=== PATIENT | female | born 1930 | race Caucasian/White ===

== ENCOUNTER 2016-12-26 15:52 | Inpatient (IN) ==
[2016-12-26] MEDS ORDERED: Ipratropium/Albuterol Neb 3 ML IH ONE (16:19)
--- NOTE | 2016-12-26 16:22 | Emergency Department Note ---
Disposition Clinical Impression: Community acquired pneumonia, Cardiac enzymes elevated Disposition: Admitted As Inpatient Condition: Good Referrals: Wellington George MD [Primary Care Provider] - Forms: ED Satisfaction Letter Time of Disposition: 18:17 SOB HPI - General Chief Complaint: ED Shortness of Breath/Dyspnea Stated Complaint: cough Time Seen by Provider: 12/26/16 16:11 Source: patient Mode of arrival: ambulatory Limitations: no limitations Nursing Notes Reviewed: Yes Vital Signs Reviewed: Yes - History of Present Illness 86-year-old comes in with cough congestion for the last several days. She denies fever states that the main complaint is cough. Does have some shortness of breath. Patient does have a [id number] history of smoking but stopped smoking 30 years ago. Pt Subjective Complaint: shortness of breath, cough Onset (ago): day(s) Severity: moderate Consistency/Duration: intermittent Improves with: nothing Worsens with: coughing Known history of: other (Denies but does have a 12-inub-mtda history remotely of smoking) Associated symptoms: Reports: cough. Denies: chest pain, fever Treatment prior to arrival: none Cough Description: Involuntary Cough Frequency: Intermittent - Related Data Home Medications Medication Instructions Recorded Confirmed Alprazolam 12/21/15 Aspirin 12/21/15 Celexa 12/21/15 12/21/15 Fish Oil 12/21/15 Losartan Potassium 12/21/15 Omeprazole 12/21/15 Pravastatin Sodium 12/21/15 B Complex 01/09/16 01/09/16 CeleXA 01/09/16 Vicks Dayquil Liquid 01/09/16 Vicks Nyquil Cough Liquid 01/09/16 01/09/16 Previous Rx's Medication Instructions Recorded hydrOXYzine pamoate [HydrOXYzine 25 mg PO TID PRN #30 capsule 12/21/15 Pamoate] methylPREDNISolone [Medrol] 4 mg PO TAPER #21 tablet 12/21/15 Ciprofloxacin HCl [Cipro] 500 mg PO BID #14 tablet 01/09/16 Phenazopyridine HCl [Pyridium] 200 mg PO TIDAC #6 tab 01/09/16 Mupirocin [Bactroban Oint] 1 appl TP BID #1 tube 04/17/16 Sulfamethoxazole/Trimeth DS 1 each PO BID #14 tablet 04/17/16 [Bactrim DS] Allergies Allergy/AdvReac Type Severity Reaction Status Date / Time No Known Allergies Allergy Verified 05/23/15 20:25 All systems ED: reviewed and negative except as stated. Constitutional: Denies: fever, chills, weakness, weight change Eyes: Denies: eye pain, eye discharge, vision change ENT ED: Denies: ear pain, throat pain, dental pain, hearing loss, epistaxis, congestion, dysphagia Cardiovascular: Denies: chest pain, palpitations, dyspnea on exertion, edema, syncope Respiratory: Reports: cough. Denies: dyspnea, wheezes, hemoptysis, stridor Gastrointestinal: Denies: abdominal pain, nausea, vomiting, diarrhea, constipation, hematemesis, melena, hematochezia Genitourinary: Denies: dysuria, frequency, hematuria, discharge Musculoskeletal: Denies: back pain, neck pain, arthralgia, myalgia Integumentary: Denies: rash, abrasion, lesions Neurological: Denies: headache, weakness, numbness, paresthesias, confusion, abnormal gait, vertigo Psychiatric: Denies: anxiety, depression, suicidal thoughts, homicidal thoughts , auditory hallucinations, visual hallucinations Endocrine: Denies: fatigue Hematological/Lymphatic: Denies: easy bleeding, easy bruising Allergic/Immunologic: Denies: facial swelling, urticaria Past Medical History - Past Medical History Medical history: Reports: CVA, hypertension, seizures, thyroid disease Surgical history: Reports: appendectomy, knee replacement, thyroidectomy Psychiatric history: Reports: no psych history MANAGER RESPIRATORY CARE history: Reports: no MANAGER RESPIRATORY CARE history - Social History Smoking Status: Former smoker Smokeless Tobacco Status: No Alcohol use: Reports: occasionally Drug use: Reports: none Physical Exam - General Limitations: no limitations General appearance: alert - Head Head exam: atraumatic, normocephalic, normal inspection - Eye Eye exam: Present: normal appearance, PERRL, EOMI - ENT ENT exam: normal exam, normal oropharynx, mucous membranes moist - Neck Neck exam: Present: normal inspection, full ROM, trachea midline - Chest Chest inspection: Present: normal inspection, symmetric chest wall rise - Respiratory Respiratory exam: Present: wheezes (Occasional), other (Diminished) - Cardiovascular Cardiovascular exam: Present: regular rate, normal rhythm, normal heart sounds - Abdominal Exam Abdominal exam: Present: soft, Non-Tender. Absent: tenderness, distention, guarding, rebound, rigidity - Extremities Exam Extremities exam: Present: normal inspection, full ROM. Absent: tenderness, pedal edema - Expanded Lower Extremity Exam Neurovascular/Tendon exam: Absent: motor deficit, sensory deficit, tendon deficit Gait: observed and normal - Back Exam Back exam: Present: normal inspection, full ROM. Absent: tenderness - Neurological Exam Neurological exam: Present: alert, oriented X3 - Psychiatric Psychiatric exam: Present: normal affect, normal mood - Skin Skin exam: Present: warm, dry, intact, normal color Course - Reevaluation(s) Reevaluation #1: 86-year-old who comes in with shortness of breath. Patient has a [id number] history of smoking but has not smoked for 30 years. Workup included chest x-ray shows multilobar pneumonia. Cardiac enzymes are slightly positive. She will be admitted for further evaluation and treatment. Time: 18:16 - Consultations Consultation #1: Discussed with Khushi Billings nurse practitioner, admit Time: 18:17 Vital Signs Temperature 98.3 F 12/26/16 15:53 Pulse Rate 96 12/26/16 15:53 Respiratory Rate 20 12/26/16 15:53 Blood Pressure 180/84 12/26/16 15:53 O2 Sat by Pulse Oximetry 92 12/26/16 15:53 Temperature 98.3 F 12/26/16 15:53 Pulse Rate 92 12/26/16 16:48 Respiratory Rate 16 12/26/16 16:48 Blood Pressure 108/78 12/26/16 16:48 O2 Sat by Pulse Oximetry 94 12/26/16 16:48 Oxygen Delivery Oxygen Delivery Room Air Shortness of Breath/Dyspnea - Lab Data Lab results reviewed: Yes I reviewed the patient's lab results. Result diagrams: 12/26/16 16:43 12/26/16 16:43 Lab Results 12/26/16 12/26/16 12/26/16 Range/Units 16:43 16:43 16:43 WBC 6.6 (4.3-11.1) K/mcL RBC 4.58 (3.82-4.97) M/mcL Hgb 13.6 (11.5-15.4) g/dL Hct 40.9 (35.3-44.9) % MCV 89.3 (83.0-100.0) fL MCH 29.7 (28.0-33.3) pg MCHC 33.3 (31.6-35.5) g/dL RDW 14.6 H (11.5-14.5) % Plt Count 174 (140-400) K/mcL MPV 10.2 (9.4-12.4) fL Immature Gran % 0.3 (0-4) % Seg Neutrophils % 70.2 % Lymphocytes % 13.7 % Monocytes % 14.7 % Eosinophils % 0.9 % Basophils % 0.2 % Neutrophils # 4.6 (1.6-8.9) K/mcL Lymphocytes # 0.9 (0.6-4.6) K/mcL Monocytes # 1.0 (0.0-1.3) K/mcL Eosinophils # 0.1 (0.0-0.6) K/mcL Basophils # 0.0 (0.0-0.2) K/mcL Sodium 139 (136-145) mEq/L Potassium 3.5 (3.5-4.5) mEq/L Chloride 102 (98-109) mEq/L Carbon Dioxide 26 (19-29) mEq/L BUN 16 (7-20) mg/dL Creatinine 0.85 (0.57-1.11) mg/dL Est GFR ( Amer) > 60 (> 60) Est GFR (Non-Af Amer) > 60 (> 60) BUN/Creatinine Ratio 19 (6-26) Glucose 99 (70-99) mg/dL Calculated Osmolality 289 (280-300) Lactic Acid 0.9 (0.5-2.2) mmol/L Calcium 8.9 (8.6-10.8) mg/dL Troponin I (0-0.03) ng/mL B-Natriuretic Peptide (0-100) pg/mL 12/26/16 12/26/16 Range/Units 16:43 16:43 WBC (4.3-11.1) K/mcL RBC (3.82-4.97) M/mcL Hgb (11.5-15.4) g/dL Hct (35.3-44.9) % MCV (83.0-100.0) fL MCH (28.0-33.3) pg MCHC (31.6-35.5) g/dL RDW (11.5-14.5) % Plt Count (140-400) K/mcL MPV (9.4-12.4) fL Immature Gran % (0-4) % Seg Neutrophils % % Lymphocytes % % Monocytes % % Eosinophils % % Basophils % % Neutrophils # (1.6-8.9) K/mcL Lymphocytes # (0.6-4.6) K/mcL Monocytes # (0.0-1.3) K/mcL Eosinophils # (0.0-0.6) K/mcL Basophils # (0.0-0.2) K/mcL Sodium (136-145) mEq/L Potassium (3.5-4.5) mEq/L Chloride (98-109) mEq/L Carbon Dioxide (19-29) mEq/L BUN (7-20) mg/dL Creatinine (0.57-1.11) mg/dL Est GFR ( Amer) (> 60) Est GFR (Non-Af Amer) (> 60) BUN/Creatinine Ratio (6-26) Glucose (70-99) mg/dL Calculated Osmolality (280-300) Lactic Acid (0.5-2.2) mmol/L Calcium (8.6-10.8) mg/dL Troponin I 0.04 H* (0-0.03) ng/mL B-Natriuretic Peptide 207 H (0-100) pg/mL - Radiology Data Radiology results reviewed: Yes I reviewed the patient's radiology results. Chest X-Ray 12/26/16 16:19 IMPRESSION: Suspected multilobar pneumonia on the left. Radiographic follow-up recommended to assure resolution. D/ / 12/26/2016 17:16:37 Eddie Suh MD / arvin Interpreting Provider: Eddie Suh MD
[2016-12-26 16:53] LABS: Basophils % 0.2 %; Eosinophils # 0.1 K/mcL (0.0-0.6); Eosinophils % 0.9 %; Hematocrit 40.9 % (35.3-44.9); Hemoglobin 13.6 g/dL (11.5-15.4); Immature Granulocytes % 0.3 % (0-4); Lymphocytes # 0.9 K/mcL (0.6-4.6); Lymphocytes % 13.7 %; Mean Corpuscular HGB Conc 33.3 g/dL (31.6-35.5); Mean Corpuscular Hemoglobin 29.7 pg (28.0-33.3); Mean Corpuscular Volume 89.3 fL (83.0-100.0); Mean Platelet Volume 10.2 fL (9.4-12.4); Monocytes % 14.7 %; Neutrophils # 4.6 K/mcL (1.6-8.9); Platelet Count 174 K/mcL (140-400); Red Blood Count 4.58 M/mcL (3.82-4.97); Red Cell Distribution Width 14.6 % (11.5-14.5); Segmented Neutrophils % 70.2 %
[2016-12-26 17:04] LABS: BUN/Creatinine Ratio 19 (6-26); Blood Urea Nitrogen 16 mg/dL (7-20); Calcium 8.9 mg/dL (8.6-10.8); Carbon Dioxide 26 mEq/L (19-29); Chloride 102 mEq/L (98-109); Glucose 99 mg/dL (70-99); Osmolality,Calculated 289 (280-300); Potassium 3.5 mEq/L (3.5-4.5); Sodium 139 mEq/L (136-145); eGFR For African Americans > 60 (> 60); eGFR For Non-African Americans > 60 (> 60)
[2016-12-26] MEDS ORDERED: Piperacillin/Tazobactam 3.375 GM in D5% in Water (Mini-Bag+) 100 ML IVPB ONE (17:46)
[2016-12-26] MEDS ORDERED: Aspirin 81 MG TAB.CHEW PO STA (18:12)
[2016-12-26] MEDS ORDERED: Ondansetron 4 MG/2 ML VIAL IVP PRN (20:35)
[2016-12-26] MEDS ORDERED: Acetaminophen 325 MG TABLET PO PRN (20:35)
[2016-12-26] MEDS ORDERED: Naloxone 0.4 MG/ML INJ IVP PRN (20:35)
[2016-12-26] MEDS ORDERED: ALPRAZolam 0.25 MG TABLET PO PRN (20:39)
[2016-12-26] MEDS ORDERED: GuaiFENesin Liq 200 MG/10 ML UDC PO PRN (20:41)
[2016-12-26] MEDS ORDERED: Ipratropium/Albuterol Neb 3 ML IH PRN (20:41)
--- NOTE | 2016-12-26 20:46 | Internal Med History&Physical ---
<Billings,Khushi J - Last Filed: 12/26/16 21:06> Date of Encounter: 12/26/16 Time of Encounter: 20:43 Assessment and Plan (1) Community acquired pneumonia Current visit: Yes Status: Acute Presented with shortness of breath and cough for 4 days prior to admission. Chest x-ray with multi lobar left upper lobe pneumonia. Zosyn started in the ED. Changed to Levaquin Add when necessary nebs, antitussive. Urinary antigens and sputum culture pending. De-escalate ATB as cultures finalize and/ or clinically improves. (2) Cardiac enzymes elevated Current visit: Yes Status: Acute Troponin 0.04. Denies chest pain, no previous history of CAD. Last stress test approximately 10 years ago. EKG with ST depression. Trend troponin, check echo. Consult Cardiology (3) Essential hypertension Current visit: Yes Status: Acute Per history. BP mildly elevated but acceptable. Continue home BP medications. Monitor BP and titrate when necessary. (4) DVT prophylaxis Current visit: Yes Status: Acute [facility] [place] Internal Medicine - H&P: HPI Chief complaint: Cough with shortness of breath Admitted From: Home History of present illness: Ms. Ortiz is a 86 year old female with past medical history hypertension and osteoporosis who presented to [facility] on 12/26/2016 with complaints of cough and shortness of breath. She was found to have pneumonia and was admitted for IV antibiotics. Information obtained from chart review and patient report although patient does not give much details and answers in yes and no answers mostly. Per patient cough and shortness of breath started approximate 4 days ago cough is dry nonproductive cough medicine helps at times. No fevers or chills she does report abdominal pain with coughing. Denies chest pain. Says she feels better since being admitted and thinks breathing treatment helped. No sick contacts that she is aware of. Past Med Surg Social Fam HX - Past Medical History Medical history: CVA, hypertension, seizures, thyroid disease Psychiatric history: no psych history - Past Surgical History Surgical History: appendectomy, knee replacement, thyroidectomy - Social History Smoking Status: Former smoker Smokeless Tobacco Status: No Alcohol use: occasionally Drug use: none - Family History Mother Adopted: No Living Status: Hx Family Cardiac Disorders: No Hx Family Respiratory Disorders: No Hx Family Cancer: No Hx Family GI Disorders: No Hx Family Genitourinary Disorders: No Hx Family Endocrine Disorder: No Hx Family Musculoskeletal Disorders: No Hx Family Neuromuscular Disorders: No Hx Family Neurologic Disorders: No Hx Family HEENT Disorders: No Hx Family Autoimmune Disorders: No Hx Family Reproductive Disorders: No Hx Family Psychosocial Disorders: No Hx Family Medical Disorders: No Internal Medicine - H&P: Meds ALPRAZolam [Xanax 0.25 MG Tablet] 0.25 mg PO BID PRN 12/26/16 [History] Alendronate Sodium [Fosamax] 70 mg PO QWEEK 12/26/16 [History] Aspirin Enteric Coated [Aspirin EC] 81 mg PO DAILY 12/26/16 [History] Cetirizine HCl [Cetirizine HCl] 10 mg PO DAILY 12/26/16 [History] Citalopram Hydrobromide [Citalopram HBr] 20 mg PO DAILY 12/26/16 [History] Losartan Potassium [Cozaar] 50 mg PO DAILY 12/26/16 [History] [place]-3/Dha/Epa/Fish Oil [Fish Oil 1,000 mg Softgel] 1,000 mg PO DAILY 12/26/16 [History] Omeprazole [PriLOSEC] 20 mg PO DAILY 12/26/16 [History] Pravastatin Sodium [Pravachol] 40 mg PO HS 12/26/16 [History] Vitamin B Complex 1 each PO DAILY 12/26/16 [History] Allergies No Known Allergies Allergy (Verified 05/23/15 20:25) All Systems PM: A 10-system review of systems was performed and is negative for pertinent findings except as documented above in the HPI. - Constitutional Constitutional: no chills, no fever(s), no night sweats - EENT Eyes: no change in vision, no discharge, no pain, no photophobia Ears: no ear discharge, no ear pain, no tinnitus Nose, mouth and throat: no dysphagia, no nasal discharge, no neck pain, no sore throat - Cardiovascular Cardiovascular ROS IM: no chest pain, no diaphoresis, no dyspnea, no lightheadedness, no palpitations, no syncope - Respiratory Respiratory: cough, dyspnea on exertion, no dyspnea, no wheezing, no excessive phlegm production - Gastrointestinal Gastrointestinal: no abdominal pain, no diarrhea, no hematemesis, no hematochezia, no melena, no nausea, no vomiting - Genitourinary Genitourinary: no change in urinary stream, no dysuria, no flank pain, no hematuria - Musculoskeletal Musculoskeletal ROS IM: no numbness, no tingling - Integumentary Integumentary IM: no rash, no unusual bruising - Neurological Neurological ROS: no confusion, no convulsions, no focal weakness, no numbness, no tingling, no tremor(s) - Hematologic/Lymphatic Hematologic/Lymphatic: no easy bruising - Constitutional Vitals: Temp Pulse Resp BP Pulse Ox 99.0 F 90 23 173/81 92 12/26/16 20:07 12/26/16 20:07 12/26/16 20:07 12/26/16 20:07 12/26/16 20:07 General appearance: Present: A&O X 3 - Head Head exam: Present: atraumatic, normocephalic - Eye Eye exam: Present: PERRL, conjuntiva pink, sclera anicteric Pupils: Present: PERRL - Neck Neck exam general surgery: Present: supple, trachea midline. Absent: lymphadenopathy - Respiratory Respiratory exam: Present: CTAB, rhonchi. Absent: accessory muscle use, rales, wheezes - Cardiovascular Cardiovascular exam: Present: RRR, +S1, +S2. Absent: diastolic murmur, gallop, rubs, systolic murmur - GI/Abdominal GI/Abdominal exam: Present: normal bowel sounds, soft, no peritoneal signs. Absent: distended, tenderness - Extremities Exam Extremities exam: Present: warm, radial pulses palpable and symetrical. Absent : calf tenderness, cyanotic, pedal edema - Neurological Exam Neurological exam: Present: CN II-XII intact, oriented X3, no focal deficits. Absent: pronater drift, facial droop, speech deficit - Skin Skin exam: Present: dry, intact Internal Med - H&P Results - Labs CBC & Chem 7: 12/26/16 16:43 12/26/16 16:43 <Brendan Iverson H - Last Filed: 12/26/16 21:37> Date of Encounter: 12/26/16 Internal Medicine - H&P: HPI History of present illness: Ms. Ortiz is a 86 year old female All Systems PM: A 10-system review of systems was performed and is negative for pertinent findings except as documented above in the HPI. - Constitutional Vitals: Temp Pulse Resp BP Pulse Ox 99.0 F 90 23 173/81 92 12/26/16 20:07 12/26/16 20:07 12/26/16 20:07 12/26/16 20:07 12/26/16 20:07 Internal Med - H&P Results - Labs CBC & Chem 7: 12/26/16 16:43 12/26/16 16:43 - Attending Attestation 1) community-acquired pneumonia Start Levaquin IV, blood cultures 2. Elevated troponins likely secondary to demand ischemia versus non-STEMI, the EKG shows some ST depressions in the lateral leads Continue aspirin, consult cardiology, monitor troponins 3. Hypertension, continue losartan 4. History of CVA, continue aspirin She will be admitted as inpatient, expected stay more than 2 midnights. Full code. Time spent on this admission 40 minutes. High risk due to acquired pneumonia with elevated troponins I examined this patient and my medical decision-making was reviewed with the CLINICAL ABSTRACTOR/PA/Advanced Practice Nurse/Resident Physician. I agree with the documented findings, disposition and treatment plan as described except to the extent set forth below.
--- NOTE | 2016-12-26 20:52 | Event Note ---
Date of Encounter: 12/26/16 Time of Encounter: 20:52 1) community-acquired pneumonia Start Levaquin IV, blood cultures 2. Elevated troponins likely secondary to demand ischemia versus non-STEMI, the EKG shows some ST depressions in the lateral leads Continue aspirin, consult cardiology, monitor troponins 3. Hypertension, continue losartan 4. History of CVA, continue aspirin She will be admitted as inpatient, expected stay more than 2 midnights. Full code. Time spent on this admission 40 minutes. High risk due to acquired pneumonia with elevated troponins H&P to be written by ANNE Billings
[2016-12-26] MEDS ORDERED: Levofloxacin 750 MG/150 ML 750 MG/150 ML BAG IVPB SCH (21:00)
[2016-12-27 02:33] LABS: Basophils % 0.4 %; Eosinophils # 0.1 K/mcL (0.0-0.6); Eosinophils % 2.2 %; Hemoglobin 12.6 g/dL (11.5-15.4); Immature Granulocytes % 0.2 % (0-4); Immature Platelets 3.5 % (1.1-6.1); Lymphocytes # 1.1 K/mcL (0.6-4.6); Lymphocytes % 20.4 %; Mean Corpuscular HGB Conc 33.2 g/dL (31.6-35.5); Mean Corpuscular Hemoglobin 29.7 pg (28.0-33.3); Mean Corpuscular Volume 89.6 fL (83.0-100.0); Mean Platelet Volume 10.1 fL (9.4-12.4); Monocytes % 17.8 %; Neutrophils # 3.2 K/mcL (1.6-8.9); Platelet Count 156 K/mcL (140-400); Red Blood Count 4.24 M/mcL (3.82-4.97); Red Cell Distribution Width 14.6 % (11.5-14.5)
[2016-12-27 02:57] LABS: Alanine Aminotransferase 14 Units/L (0-55); Albumin 3.1 g/dL (3.5-5.0); Albumin/Globulin Ratio 0.9 (1.1-2.2); Alkaline Phosphatase 52 Units/L (38-126); Aspartate Amino Transferase 27 Units/L (5-34); BUN/Creatinine Ratio 23 (6-26); Bilirubin,Total 0.7 mg/dL (0.2-1.2); Blood Urea Nitrogen 19 mg/dL (7-20); Calcium 8.4 mg/dL (8.6-10.8); Carbon Dioxide 25 mEq/L (19-29); Chloride 103 mEq/L (98-109); Globulin 3.4 g/dL (2.4-3.5); Glucose 83 mg/dL (70-99); Osmolality,Calculated 289 (280-300); Potassium 3.5 mEq/L (3.5-4.5); Sodium 139 mEq/L (136-145); Total Protein 6.5 g/dL (6.0-8.3); eGFR For African Americans > 60 (> 60); eGFR For Non-African Americans > 60 (> 60)
[2016-12-27] MEDS: *HR* Enoxaparin 40 MG/0.4 ML SYRINGE SQ SCH (05:25)
--- NOTE | 2016-12-27 10:15 | Cardiology Consult Note ---
Date of Encounter: 12/27/16 Time of Encounter: 10:00 Assessment and Plan (1) Demand ischemia of myocardium Current Visit: Yes Status: Acute Minimally elevated troponin (0.04, 0.05, 0.04) is consistent with mild demand ischemia in the setting of pneumonia and uncontrolled hypertension. TTE showed LVEF 55-60% with basal inferior hypokinesis. Based on this echo finding, she probably has coronary artery disease, however, her clinical presentation is not consistent with ACS. I recommend the following: - continue aspirin 81mg daily. - continue losartan 50mg daily - switch pravastatin to atorvastatin 40mg daily. - start amlodipine 5mg daily for better BP control. - outpatient follow-up in cardiology clinic in 2 weeks at which time outpatient stress test can be considered. Above discussed with patient who is in agreement. We will sign-off. Please call with any additional questions. (2) Essential hypertension Current Visit: Yes Status: Acute Adding amlodipine 5mg daily as noted above. Continue losartan. Continue to monitor BP while inpatient and adjust medications as needed. Discussion w patient/family: The assessment and plan as outlined above was discussed with the patient and/or family members who expressed understanding and agreement. All questions were answered. Thank you for involving us in the care of your patient. Please call with any questions. History of Present Illness Consult date: 12/27/16 Requesting physician: Brendan Iverson Consult reason: elevated troponin Chief complaint: cough, dyspnea History of present illness: Ms. Ortiz is a 86 year old female who presented to the ED yesterday with cough and dyspnea for the last 4 days. CXR showed L-sided pneumonia. Admitted to hospitalist service and started on antibiotics. Troponin was also checked and found to be minimally elevated (0.04, 0.05, 0.04). TTE was performed and showed LVEF 55-60% with hypokinesis of the basal inferior wall. Cardiology consulted for further recommendations. Patient also reports generlized weakness. She denies any chest pain, dizziness, syncope, or leg swelling. Past Med Surg Social Fam HX - Past Medical History Medical history: CVA, hypertension, seizures, thyroid disease Psychiatric history: no psych history - Past Surgical History Surgical History: appendectomy, knee replacement, thyroidectomy - Social History Smoking Status: Former smoker Smokeless Tobacco Status: No Alcohol use: occasionally Drug use: none - Family History Mother Adopted: No Living Status: Hx Family Cardiac Disorders: No Hx Family Respiratory Disorders: No Hx Family Cancer: No Hx Family GI Disorders: No Hx Family Genitourinary Disorders: No Hx Family Endocrine Disorder: No Hx Family Musculoskeletal Disorders: No Hx Family Neuromuscular Disorders: No Hx Family Neurologic Disorders: No Hx Family HEENT Disorders: No Hx Family Autoimmune Disorders: No Hx Family Reproductive Disorders: No Hx Family Psychosocial Disorders: No Hx Family Medical Disorders: No Medications and Allergies ALPRAZolam [Xanax 0.25 MG Tablet] 0.25 mg PO BID PRN 12/26/16 [History] Alendronate Sodium [Fosamax] 70 mg PO QWEEK 12/26/16 [History] Aspirin Enteric Coated [Aspirin EC] 81 mg PO DAILY 12/26/16 [History] Cetirizine HCl [Cetirizine HCl] 10 mg PO DAILY 12/26/16 [History] Citalopram Hydrobromide [Citalopram HBr] 20 mg PO DAILY 12/26/16 [History] Losartan Potassium [Cozaar] 50 mg PO DAILY 12/26/16 [History] [place]-3/Dha/Epa/Fish Oil [Fish Oil 1,000 mg Softgel] 1,000 mg PO DAILY 12/26/16 [History] Omeprazole [PriLOSEC] 20 mg PO DAILY 12/26/16 [History] Pravastatin Sodium [Pravachol] 40 mg PO HS 12/26/16 [History] Vitamin B Complex 1 each PO DAILY 12/26/16 [History] Allergies No Known Allergies Allergy (Verified 05/23/15 20:25) All Systems Review: A 10-system review of systems was performed and is negative for pertinent findings except as documented above in the HPI. Physical Examination Vital Signs, Last 4 Hours Temp Pulse Resp BP Pulse Ox 12/27/16 07:18 97.6 F 85 16 158/78 94 General: Conversant, No Apparent Distress HEENT: Atraumatic, Normocephaly, Mucus Membranes Moist Neck: Normal carotid pulses, Other (no carotid bruits) Cardiac: Reg Rate and Rhythm, Normal S1 and S2, No Murmur Lungs: Normal Breath Sounds, No Wheeze, Rales, Rhonchi Neuro: Alert and responsive, No focal deficits noted Abdomen: Soft, Non-Tender Skin: No rashes noted on visualized skin Extremities: No Clubbing, No Cyanosis, No Edema, Normal Pulses Results 12/27/16 02:16 12/27/16 02:16 Lab Results 12/27/16 12/27/16 12/27/16 02:16 02:16 02:16 WBC 5.4 Hgb 12.6 Hct 38.0 Plt Count 156 Sodium 139 Potassium 3.5 Chloride 103 Carbon Dioxide 25 BUN 19 Creatinine 0.83 Glucose 83 Calcium 8.4 L Total Bilirubin 0.7 AST 27 ALT 14 Alkaline Phosphatase 52 Troponin I 0.04 H* 12/27/16 09:39 WBC Hgb Hct Plt Count Sodium Potassium Chloride Carbon Dioxide BUN Creatinine Glucose Calcium Total Bilirubin AST ALT Alkaline Phosphatase Troponin I 0.02 - Imaging and Cardiology Chest Xray: report reviewed Echo: image reviewed (LVEF 55-60% (hypokinesis of basal inferior wall, otherwise normal contractility), mild-moderate LVH, mild diastolic dysfunction, normal RV, mild AR.) - EKG Interpretation EKG results cardiology: personally reviewed (sinus rhythm, mild non-specific ST abnormality.) Consult Discharge Plan - Plan Referrals: Wellington George MD [Primary Care Provider] -
[2016-12-27] MEDS: Aspirin Enteric Coated 81 MG Tablet PO SCH (13:10)
[2016-12-27] MEDS: amLODIPine 5 MG TABLET PO SCH (13:11)
[2016-12-27] MEDS: GuaiFENesin/Codeine Oral Soln 5 ML UDC PO PRN ×2 (13:13→20:04)
--- NOTE | 2016-12-27 19:46 | Internal Med Progress Note ---
Date of Encounter: 12/27/16 Time of Encounter: 10:30 - Assessment and plan (1) Acute respiratory failure with hypoxia Current Visit: Yes Status: Acute Assessment and plan: Due to pneumonia. Continue to wean oxygen as able. Treat pneumonia. (2) Pneumonia Current Visit: Yes Status: Suspected Assessment and plan: Currently on IV abx. Continue supportive care. Cough suppressant. Qualifiers: Pneumonia type: due to Pneumococcus Laterality: left Lung location: upper lobe of lung Qualified Code(s): J13 - Pneumonia due to Streptococcus pneumoniae (3) Essential hypertension Current Visit: Yes Status: Chronic Assessment and plan: Continue current therapy. (4) Demand ischemia of myocardium Current Visit: Yes Status: Acute Assessment and plan: Appreciate cardiology input. - Subjective Interval history: Ms. Ortiz is currently admitted for acute hypoxic resp failure due to pneumonia. She is high risk due to potential for worsening respiratory status. Ms. Ortiz still feels terrible. She is coughing quite a bit. She is eating some. No fever. No GI symptoms. No CP. She is requesting another cough syrup. - Constitutional Vitals: Temp Pulse Resp BP Pulse Ox 98.5 F 88 16 149/75 94 12/27/16 15:04 12/27/16 15:04 12/27/16 15:04 12/27/16 15:04 12/27/16 15:04 General appearance: Present: A&O X 3 - Head Head exam: Present: normocephalic - Eye Eye exam: Present: conjuntiva pink - ENT ENT exam: Present: mucous membranes moist - Respiratory Respiratory exam: Present: decreased breath sounds, rales, rhonchi - Cardiovascular Cardiovascular exam: Present: RRR. Absent: tachycardia - GI/Abdominal GI/Abdominal exam: Present: soft. Absent: tenderness - Extremities Exam Extremities exam: Present: warm. Absent: tenderness - Neurological Exam Neurological exam: Present: alert, oriented X3 - Psychiatric Psychiatric exam: Present: normal affect, normal mood Internal Medicine: Result - Labs CBC & Chem 7: 12/27/16 02:16 12/27/16 02:16 Labs: Short CBC 12/27/16 Range/Units 02:16 WBC 5.4 (4.3-11.1) K/mcL Hgb 12.6 (11.5-15.4) g/dL Hct 38.0 (35.3-44.9) % Plt Count 156 (140-400) K/mcL Neutrophils # 3.2 (1.6-8.9) K/mcL BMP 12/27/16 02:16 Sodium 139 Potassium 3.5 Chloride 103 Carbon Dioxide 25 BUN 19 Creatinine 0.83 Glucose 83 Calcium 8.4 L Cardiac Enzymes 12/27/16 12/27/16 Range/Units 02:16 09:39 Troponin I 0.04 H* 0.02 (0-0.03) ng/mL Liver Function 12/27/16 Range/Units 02:16 Total Bilirubin 0.7 (0.2-1.2) mg/dL AST 27 (5-34) Units/L ALT 14 (0-55) Units/L Alkaline Phosphatase 52 (38-126) Units/L Albumin 3.1 L (3.5-5.0) g/dL - VTE Documentation of Mechanical Device: Intermittent pneumatic compression device Consult Discharge Plan - Plan Referrals: Wellington George MD [Primary Care Provider] -
[2016-12-28] MEDS: *HR* Enoxaparin 40 MG/0.4 ML SYRINGE SQ SCH (06:06)
[2016-12-28] MEDS: amLODIPine 5 MG TABLET PO SCH (09:18)
[2016-12-28] MEDS: Aspirin Enteric Coated 81 MG Tablet PO SCH (09:18)
--- NOTE | 2016-12-28 09:57 | Internal Med Progress Note ---
<Cyndi Cabrera Lynn - Last Filed: 12/28/16 09:54> Date of Encounter: 12/28/16 Time of Encounter: 09:54 - Assessment and plan (1) Acute respiratory failure with hypoxia Current Visit: Yes Status: Acute Assessment and plan: Due to pneumonia 98% saturation on room air Treat pneumonia. (2) Demand ischemia of myocardium Current Visit: Yes Status: Acute Assessment and plan: Appreciate cardiology input (3) Essential hypertension Current Visit: Yes Status: Chronic Assessment and plan: Continue current therapy. (4) Pneumonia Current Visit: Yes Status: Suspected Assessment and plan: ContinueIV abx repeat CXR, 2V today Continue supportive care Cough suppressant ctx pending Qualifiers: Pneumonia type: due to Pneumococcus Laterality: left Lung location: upper lobe of lung Qualified Code(s): J13 - Pneumonia due to Streptococcus pneumoniae (5) DVT prophylaxis Current Visit: Yes Status: Acute - Subjective Interval history: 86 yo F presented with dyspnea and troponin elevation related to demand ischemia. Pt admitted with acute pneumonia, started on IV abx. Pt states that she feels much better today since started antibiotics and cough medicine. She states that she finally was able to get a heber sleep last night which has helped her feels better as well. She states she still has cough, mostly dry which has improved. Pt denies current chestpain, shortness of breath, LE edema. - Constitutional Vitals: Temp Pulse Resp BP Pulse Ox 98.1 F 79 18 163/81 96 12/28/16 07:04 12/28/16 07:04 12/28/16 07:04 12/28/16 07:04 12/28/16 09:29 General appearance: Present: A&O X 3, pleasant, no acute distress, answers questions appropriately - Head Head exam: Present: atraumatic, normocephalic - Eye Eye exam: Present: EOMI, PERRL, conjuntiva pink, sclera anicteric Pupils: Present: PERRL - Neck Neck exam general surgery: Present: supple, trachea midline. Absent: lymphadenopathy - Respiratory Respiratory exam: Present: decreased breath sounds, rhonchi - Expanded Respiratory Exam Location: decreased breath sounds: Left, Right, Lower, rhonchi: Left, Right, Upper (minimal) - Cardiovascular Cardiovascular exam: Present: RRR, +S1, +S2. Absent: diastolic murmur, gallop, rubs, systolic murmur - GI/Abdominal GI/Abdominal exam: Present: normal bowel sounds, soft, no peritoneal signs. Absent: distended, tenderness - Extremities Exam Extremities exam: Present: warm, radial pulses palpable and symetrical. Absent : calf tenderness, cyanotic, pedal edema - Neurological Exam Neurological exam: Present: CN II-XII intact, oriented X3, no focal deficits. Absent: pronater drift, facial droop, speech deficit - Skin Skin exam: Present: dry, intact Internal Medicine: Result - Labs CBC & Chem 7: 12/27/16 02:16 12/27/16 02:16 Labs: Cardiac Enzymes 12/27/16 Range/Units 09:39 Troponin I 0.02 (0-0.03) ng/mL - VTE Documentation of Mechanical Device: Intermittent pneumatic compression device Consult Discharge Plan - Plan Referrals: Wellington George MD [Primary Care Provider] - <Zak Zaldivar - Last Filed: 12/28/16 18:56> Date of Encounter: 12/28/16 - Assessment and plan (1) Acute respiratory failure with hypoxia Current Visit: Yes Status: Acute (2) Pneumonia Current Visit: Yes Status: Suspected Qualifiers: Pneumonia type: due to Pneumococcus Laterality: left Lung location: upper lobe of lung Qualified Code(s): J13 - Pneumonia due to Streptococcus pneumoniae (3) Essential hypertension Current Visit: Yes Status: Chronic (4) Demand ischemia of myocardium Current Visit: Yes Status: Acute - Constitutional Vitals: Temp Pulse Resp BP Pulse Ox 98.7 F 87 18 156/57 94 12/28/16 18:00 12/28/16 18:00 12/28/16 18:00 12/28/16 18:00 12/28/16 18:00 Internal Medicine: Result - Labs CBC & Chem 7: 12/27/16 02:16 12/27/16 02:16 - Impressions Impressions Chest X-Ray 12/28/16 09:22 IMPRESSION: 1. Decreased left basilar airspace opacity, likely improved atelectasis or pneumonia. 2. Pulmonary vascular congestion and mild cardiomegaly with resolution of possible perihilar edema on the prior study. 3. Questionable trace bilateral effusions. D/ / Jhon Green MD / Jhon Green MD Interpreting Provider: Jhon Green MD - Attending Attestation I examined this patient and my medical decision-making was reviewed with the Resident Physician on 12/28/16. I agree with the documented findings, disposition and treatment plan as described except to the extent set forth below. Ms. Ortiz is currently admitted for acute pneumonia. She is moderate risk due to potential for worsening respiratory symptoms. Ms. Ortiz is beginning to feel better. Denies pain. No fever or GI symptoms. Exam Alert. Comfortable Heart reg Lungs diminished but clear I/P 1. Pneumonia Further diagnoses and plan as above.
[2016-12-28] MEDS: GuaiFENesin/Codeine Oral Soln 5 ML UDC PO PRN (20:11)
[2016-12-28] MEDS ORDERED: Levofloxacin 750 MG/150 ML 750 MG/150 ML BAG IVPB SCH (21:00)
[2016-12-29] MEDS: *HR* Enoxaparin 40 MG/0.4 ML SYRINGE SQ SCH (05:39)
--- NOTE | 2016-12-29 07:05 | Electrocardiograph Report ---
[place] [id number] Test Date: 2016-12-26 Pat Name: Tova Ortiz Department: 102 Room: [facility] Gender: F Dump Worker: Andrade : 1930 Requested By: Jairo Street Order Number: [id number] Reading MD: Christian Means MD Measurements Intervals [place] Rate: 89 P: 49 CA: 128 QRS: 14 QRSD: 82 T: 30 QT: 391 QTc: 438 Interpretive Statements SINUS RHYTHM Electronically Signed On 12-29-2016 7:03:22 EDT by Christian Means MD
--- NOTE | 2016-12-29 09:27 | Discharge Summary ---
<Cyndi Cabrera - Last Filed: 12/29/16 09:21> Date of Encounter: 12/29/16 Time of Encounter: 09:21 - Discharge Diagnosis (1) Acute respiratory failure with hypoxia Priority: Primary Status: Acute (2) Pneumonia Priority: Secondary Status: Suspected Qualifiers: Pneumonia type: due to Pneumococcus Laterality: left Lung location: upper lobe of lung Qualified Code(s): J13 - Pneumonia due to Streptococcus pneumoniae (3) Demand ischemia of myocardium Priority: Secondary Status: Acute (4) Essential hypertension Priority: Secondary Status: Chronic (5) DVT prophylaxis Priority: Secondary Status: Acute - Discharge Medications Prescriptions: Levofloxacin [Levaquin] 750 mg PO DAILY #5 tablet Home Medications: ALPRAZolam [Xanax 0.25 MG Tablet] 0.25 mg PO BID PRN 12/26/16 [History] Alendronate Sodium [Fosamax] 70 mg PO QWEEK 12/26/16 [History] Aspirin Enteric Coated [Aspirin EC] 81 mg PO DAILY 12/26/16 [History] Cetirizine HCl 10 mg PO DAILY 12/26/16 [History] Citalopram Hydrobromide [Citalopram HBr] 20 mg PO DAILY 12/26/16 [History] Losartan Potassium [Cozaar] 50 mg PO DAILY 12/26/16 [History] [place]-3/Dha/Epa/Fish Oil [Fish Oil 1,000 mg Softgel] 1,000 mg PO DAILY 12/26/16 [History] Omeprazole [PriLOSEC] 20 mg PO DAILY 12/26/16 [History] Pravastatin Sodium [Pravachol] 40 mg PO HS 12/26/16 [History] Vitamin B Complex 1 each PO DAILY 12/26/16 [History] Levofloxacin [Levaquin] 750 mg PO DAILY #5 tablet 12/29/16 [Rx] Allergies/Adverse Reactions: Allergies No Known Allergies Allergy (Verified 05/23/15 20:25) Date of admission: 12/27/16 00:26 Primary care physician: Wellington George MD Consults: 12/27/16 20:12 Consult to Occupational Therapy [CONS] Routine Comment: Evaluate, develop and implement POC Reason for Consult: possible need for home health, or rehab Consult to Physical Therapy [CONS] Routine Comment: Evaluate, develop and implement POC Reason for Consult: possible need for homehealth or rehab Consult to Receiving Inspector [CONS] Routine Reason for SW Consult: possible need for home health or rehab Discharging clinician: Cyndi Cabrera Anticipated date of discharge: 12/29/16 - Patient Status Disposition: Home, Self-Care Condition: Good Functional capacity at discharge: independent ambulation Overall status at discharge: patient is progressing back to baseline - Discharge Instructions Instructions: Levofloxacin (By mouth), Acute Respiratory Distress Syndrome (DC) , Chronic Hypertension (DC), Pneumonia (DC) Follow Up With: Wellington George MD [Primary Care Provider] - 01/05/17 1:15 pm - Diet and Activity Activity: increase activity as tolerated Diet: advance to your usual diet Interval History: 86 yo F presented with cough and shortness of breath. patient was afebrile and without a white count but infiltration seen on chest xray. Was admitted with acute respiratory failure and pneumonia.Treated with IV antibiotics and bronchodilator therapy. Symptoms improved, repeat 2 view chest xray showed improvement of lung infiltration. She was converted to oral antibiotics and recommended outpatient follow up with her primary care physician within one week. Hospital course: Ms. Ortiz is a 86 year old female - Time Spent with Patient Total time spent providing and/or coordinating discharge services: - Constitutional Vitals: Temp Pulse Resp BP Pulse Ox 97.8 F 77 16 169/86 94 12/29/16 07:14 12/29/16 07:14 12/29/16 07:14 12/29/16 07:14 12/29/16 07:14 General appearance: Present: A&O X 3, pleasant, no acute distress, answers questions appropriately - Head Head exam: Present: atraumatic, normocephalic - Eye Eye exam: Present: PERRL, conjuntiva pink, sclera anicteric Pupils: Present: PERRL - Neck Neck exam general surgery: Present: supple, trachea midline. Absent: lymphadenopathy - Respiratory Respiratory exam: Present: CTAB. Absent: accessory muscle use, rales, rhonchi, wheezes - Cardiovascular Cardiovascular exam: Present: RRR, +S1, +S2. Absent: diastolic murmur, gallop, rubs, systolic murmur - GI/Abdominal GI/Abdominal exam: Present: normal bowel sounds, soft, no peritoneal signs. Absent: distended, tenderness - Extremities Exam Extremities exam: Present: warm, radial pulses palpable and symetrical. Absent : calf tenderness, cyanotic, pedal edema - Neurological Exam Neurological exam: Present: CN II-XII intact, oriented X3, no focal deficits. Absent: pronater drift, facial droop, speech deficit - Skin Skin exam: Present: dry, intact - VTE Documentation of Mechanical Device: Intermittent pneumatic compression device <Lonnie Zaldivargem Gamboa - Last Filed: 12/29/16 12:29> Date of Encounter: 12/29/16 - Discharge Diagnosis (1) Acute respiratory failure with hypoxia Status: Acute (2) Pneumonia Status: Suspected Qualifiers: Pneumonia type: due to Pneumococcus Laterality: left Lung location: upper lobe of lung Qualified Code(s): J13 - Pneumonia due to Streptococcus pneumoniae (3) Essential hypertension Status: Chronic (4) Demand ischemia of myocardium Status: Acute Date of admission: 12/27/16 00:26 Primary care physician: Wellington George MD Consults: 12/27/16 20:12 Consult to Occupational Therapy [CONS] Routine Comment: Evaluate, develop and implement POC Reason for Consult: possible need for home health, or rehab Consult to Physical Therapy [CONS] Routine Comment: Evaluate, develop and implement POC Reason for Consult: possible need for homehealth or rehab Consult to Receiving Inspector [CONS] Routine Reason for SW Consult: possible need for home health or rehab Hospital course: Ms. Ortiz is a 86 year old female - Time Spent with Patient Total time spent providing and/or coordinating discharge services: 35min - Constitutional Vitals: Temp Pulse Resp BP Pulse Ox 98.2 F 77 16 169/86 94 12/29/16 10:55 12/29/16 10:56 12/29/16 10:56 12/29/16 10:56 12/29/16 10:56 - Attending Attestation I examined this patient and my medical decision-making was reviewed with the Resident Physician on 12/29/16. I agree with the documented findings, disposition and treatment plan as described except to the extent set forth below. Ms. Ortiz feels much better. No issues with dyspnea or persistent cough. No fever and vitals are stable. Exam Alert. Comfortable Heart reg No wheeze No edema Plan D/C today Complete Levaquin
[2016-12-29] MEDS: amLODIPine 5 MG TABLET PO SCH (09:42)
[2016-12-29] MEDS: Aspirin Enteric Coated 81 MG Tablet PO SCH (09:42)
[2016-12-29 11:01] VITALS: BP 169/86
== END 2016-12-29 13:23 | disposition home or self-care (01) | DRG 193 ==
LOC: 2NENU 15:52 → EMEROO 15:52 → 2NENU 19:41
PROVIDERS: ADMIT Registered Nurse; ATTEND Internal Medicine

== ENCOUNTER 2017-12-25 12:54 | Inpatient (IN) ==
[2017-12-25 13:17] LABS: Basophils % 0.1 %; Eosinophils # 0.1 K/mcL (0.0-0.6); Eosinophils % 0.4 %; Hematocrit 31.3 % (35.3-44.9); Hemoglobin 10.4 g/dL (11.5-15.4); Immature Granulocytes % 0.6 % (0-4); Lymphocytes # 0.9 K/mcL (0.6-4.6); Lymphocytes % 6.1 %; Mean Corpuscular HGB Conc 33.2 g/dL (31.6-35.5); Mean Corpuscular Hemoglobin 29.8 pg (28.0-33.3); Mean Corpuscular Volume 89.7 fL (83.0-100.0); Mean Platelet Volume 9.9 fL (9.4-12.4); Monocytes # 1.3 K/mcL (0.0-1.3); Monocytes % 8.7 %; Neutrophils # 12.8 K/mcL (1.6-8.9); Platelet Count 196 K/mcL (140-400); Red Blood Count 3.49 M/mcL (3.82-4.97); Red Cell Distribution Width 13.4 % (11.5-14.5); Segmented Neutrophils % 84.1 %
--- NOTE | 2017-12-25 13:19 | Emergency Department Note ---
Disposition Clinical Impression: Elevated troponin, Generalized weakness Urinary tract infection Qualifiers: Urinary tract infection type: site unspecified Hematuria presence: without hematuria Qualified Code(s): N39.0 - Urinary tract infection, site not specified Disposition: Admitted As Inpatient Condition: Good Referrals: Wellington George MD [Primary Care Provider] - Forms: ED Satisfaction Letter, Work/School Release Time of Disposition: 15:06 General Adult HPI - General Chief complaint: ED General Medical Stated complaint: poss stroke, Time Seen by Provider: 12/25/17 13:03 Source: patient, family, EMS Mode of arrival: EMS Limitations: altered mental status Nursing Notes Reviewed: Yes Vital Signs Reviewed: Yes - History of Present Illness HPI Narrative: This is an 87 year-old female with history of HTN, HLD, CVA (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 She presented via EMS with weakness and AMS. Just prior to arrival, patient slumped over and became unresponsive while sitting at the dinner table. Patient lives with her daughter, who called EMS. EMS noted bilateral upper extremity weakness. On arrival, patient is alert but confused and unable to give relevant answers. Her son also arrives, states that patient has had cognitive impairment since CVA last June, and current mental status is baseline. Pt Subjective Complaint: Weakness, AMS Onset (ago): Just WATCH CASE [employer]ER Pain Scale: 0 Associated symptoms: Reports: confusion (chronic) - Related Data Home Medications Medication Instructions Recorded Confirmed ALPRAZolam [Xanax 0.25 MG Tablet] 0.25 mg PO BID PRN 12/26/16 12/26/16 Alendronate Sodium [Fosamax] 70 mg PO QWEEK 12/26/16 12/26/16 Aspirin Enteric Coated [Aspirin EC] 81 mg PO DAILY 12/26/16 12/26/16 Cetirizine HCl 10 mg PO DAILY 12/26/16 12/26/16 Citalopram Hydrobromide 20 mg PO DAILY 12/26/16 12/26/16 [Citalopram HBr] Losartan Potassium [Cozaar] 50 mg PO DAILY 12/26/16 12/26/16 [place]-3/Dha/Epa/Fish Oil [Fish Oil 1,000 mg PO DAILY 12/26/16 12/26/16 1,000 mg Softgel] Omeprazole [PriLOSEC] 20 mg PO DAILY 12/26/16 12/26/16 Pravastatin Sodium [Pravachol] 40 mg PO HS 12/26/16 12/26/16 Vitamin B Complex 1 each PO DAILY 12/26/16 12/26/16 Previous Rx's Medication Instructions Recorded Levofloxacin [Levaquin] 750 mg PO DAILY #5 tablet 12/29/16 predniSONE [PredniSONE] 0 mg PO DAILY #10 tablet 03/02/17 Allergies Allergy/AdvReac Type Severity Reaction Status Date / Time No Known Allergies Allergy Verified 06/20/17 13:04 Limitations: ROS unobtainable due to patients medical condition Past Medical History - Past Medical History Medical history: Reports: CVA, hypertension, seizures, thyroid disease Surgical history: Reports: knee replacement, thyroidectomy, appendectomy Psychiatric history: Reports: anxiety DOG BREEDER history: Reports: no DOG BREEDER history - Social History Smoking Status: Former smoker Smokeless Tobacco Status: No Alcohol use: Reports: none Drug use: Reports: none Physical Exam - General Limitations: altered mental status, age General appearance: alert, in no apparent distress - Head Head exam: atraumatic, normocephalic - Eye Eye exam: Present: PERRL, EOMI, miosis - ENT ENT exam: normal exam, normal oropharynx - Respiratory Respiratory exam: Present: normal lung sounds bilaterally. Absent: respiratory distress, wheezes - Cardiovascular Cardiovascular exam: Present: regular rate, normal rhythm, normal heart sounds - Abdominal Exam Abdominal exam: Present: soft, Non-Tender. Absent: distention - Extremities Exam Extremities exam: Present: normal inspection. Absent: pedal edema, calf tenderness - Neurological Exam Neurological exam: Present: alert, CN II-XII intact, other (no facial droop, normal scrap carrier strength all etremities). Absent: oriented X3, motor sensory deficit - Skin Skin exam: Present: warm, dry, intact Course - Reevaluation(s) Reevaluation #1: Reviewed history and discussed test results with patient's daughters. They confirm that patient's mental status is normal now. They say patient has had similar symptoms in the past with UTI. They are in agreement with admission. Family plans to make patient DNR-CC, but patient's POA is not here. She will be coming to hospital to sign the paperwork. Time: 15:06 Vital Signs Temperature 97.9 F 12/25/17 12:57 Pulse Rate 75 12/25/17 12:57 Respiratory Rate 13 12/25/17 12:57 Blood Pressure 170/78 12/25/17 12:57 O2 Sat by Pulse Oximetry 93 12/25/17 12:57 Temperature 97.9 F 12/25/17 12:57 Pulse Rate 75 12/25/17 12:57 Respiratory Rate 13 12/25/17 12:57 Blood Pressure 170/78 12/25/17 12:57 O2 Sat by Pulse Oximetry 93 12/25/17 12:57 Oxygen Delivery Oxygen Delivery Room Air Medical Decision Making - Lab Data Lab results reviewed: Yes I reviewed the patient's lab results. Result diagrams: 12/25/17 13:00 12/25/17 13:00 Lab Results 12/25/17 12/25/17 12/25/17 Range/Units 13:00 13:00 13:00 WBC 15.2 H (4.3-11.1) K/mcL RBC 3.49 L (3.82-4.97) M/mcL Hgb 10.4 L (11.5-15.4) g/dL Hct 31.3 L (35.3-44.9) % MCV 89.7 (83.0-100.0) fL MCH 29.8 (28.0-33.3) pg MCHC 33.2 (31.6-35.5) g/dL RDW 13.4 (11.5-14.5) % Plt Count 196 (140-400) K/mcL MPV 9.9 (9.4-12.4) fL Immature Gran % 0.6 (0-4) % Seg Neutrophils % 84.1 % Lymphocytes % 6.1 % Monocytes % 8.7 % Eosinophils % 0.4 % Basophils % 0.1 % Neutrophils # 12.8 H (1.6-8.9) K/mcL Lymphocytes # 0.9 (0.6-4.6) K/mcL Monocytes # 1.3 (0.0-1.3) K/mcL Eosinophils # 0.1 (0.0-0.6) K/mcL Basophils # 0.0 (0.0-0.2) K/mcL PT 11.8 (9.4-12.1) Seconds INR 1.1 APTT 30.3 (26.0-36.0) Seconds Sodium 141 (136-145) mEq/L Potassium 3.6 (3.5-5.1) mEq/L Chloride 106 (98-107) mEq/L Carbon Dioxide 27 (23-29) mEq/L BUN 15 (8-23) mg/dL Creatinine 1.00 (0.60-1.20) mg/dL Est GFR ( Amer) > 60 (> 60) Est GFR (Non-Af Amer) 52 L (> 60) BUN/Creatinine Ratio 15 (6-26) Glucose 212 H (70-105) mg/dL Calculated Osmolality 299 (280-300) Calcium 8.4 L (8.6-10.3) mg/dL Troponin I 0.12 H* (< 0.04) ng/mL Urine Color (Yellow) Urine Clarity (Clear) Urine pH (5.0-8.0) pH Units Ur Specific [place] (1.010-1.025) Urine Protein (Neg-Trace) mg/dL Urine Glucose (UA) (Normal) mg/dL Urine Ketones (Negative) mg/dL Urine Blood (Negative) Urine Nitrite (Negative) Urine Bilirubin (Negative) Urine Urobilinogen (Normal) mg/dL Ur Leukocyte Esterase (Negative) Urine Microscopic RBC (0-3) per hpf Urine Microscopic WBC (0-3) per hpf Ur Squamous Epith Cells (None-Few) per lpf Urine Bacteria (None-Few) per hpf Hyaline Casts (None-Few) per lpf Ur Culture Indicated? (NO) Urine Opiates Screen (Zjknia=828) ng/mL Ur Barbiturates Screen (Eddons=243) ng/mL Ur Phencyclidine Scrn (Cutoff=25) ng/mL Ur Amphetamines Screen (Mhtzqs=3838) ng/mL U Benzodiazepines Scrn (Eefckx=977) ng/mL Urine Cocaine Screen (Cutoff= 300) ng/mL U Marijuana (THC) Screen (Cutoff = 50) ng/mL 12/25/17 12/25/17 Range/Units 13:58 13:58 WBC (4.3-11.1) K/mcL RBC (3.82-4.97) M/mcL Hgb (11.5-15.4) g/dL Hct (35.3-44.9) % MCV (83.0-100.0) fL MCH (28.0-33.3) pg MCHC (31.6-35.5) g/dL RDW (11.5-14.5) % Plt Count (140-400) K/mcL MPV (9.4-12.4) fL Immature Gran % (0-4) % Seg Neutrophils % % Lymphocytes % % Monocytes % % Eosinophils % % Basophils % % Neutrophils # (1.6-8.9) K/mcL Lymphocytes # (0.6-4.6) K/mcL Monocytes # (0.0-1.3) K/mcL Eosinophils # (0.0-0.6) K/mcL Basophils # (0.0-0.2) K/mcL PT (9.4-12.1) Seconds INR APTT (26.0-36.0) Seconds Sodium (136-145) mEq/L Potassium (3.5-5.1) mEq/L Chloride (98-107) mEq/L Carbon Dioxide (23-29) mEq/L BUN (8-23) mg/dL Creatinine (0.60-1.20) mg/dL Est GFR ( Amer) (> 60) Est GFR (Non-Af Amer) (> 60) BUN/Creatinine Ratio (6-26) Glucose (70-105) mg/dL Calculated Osmolality (280-300) Calcium (8.6-10.3) mg/dL Troponin I (< 0.04) ng/mL Urine Color Yellow (Yellow) Urine Clarity Clear (Clear) Urine pH 5.5 (5.0-8.0) pH Units Ur Specific [place] 1.020 (1.010-1.025) Urine Protein 30 H (Neg-Trace) mg/dL Urine Glucose (UA) Normal (Normal) mg/dL Urine Ketones Negative (Negative) mg/dL Urine Blood Trace-lysed H (Negative) Urine Nitrite Positive A (Negative) Urine Bilirubin Negative (Negative) Urine Urobilinogen Normal (Normal) mg/dL Ur Leukocyte Esterase Trace H (Negative) Urine Microscopic RBC 0-3 (0-3) per hpf Urine Microscopic WBC 5-15 H (0-3) per hpf Ur Squamous Epith Cells Moderate H (None-Few) per lpf Urine Bacteria Many H (None-Few) per hpf Hyaline Casts Few (None-Few) per lpf Ur Culture Indicated? YES A (NO) Urine Opiates Screen Negative (Wxbvth=440) ng/mL Ur Barbiturates Screen Negative (Edzexo=066) ng/mL Ur Phencyclidine Scrn Negative (Cutoff=25) ng/mL Ur Amphetamines Screen Negative (Ijjzhc=9465) ng/mL U Benzodiazepines Scrn Positive H (Igatai=402) ng/mL Urine Cocaine Screen Negative (Cutoff= 300) ng/mL U Marijuana (THC) Screen Negative (Cutoff = 50) ng/mL - Radiology Data Radiology results reviewed: Yes I reviewed the patient's radiology results. XR/XR chest 1V portable IMPRESSION: No acute process. CT/CT head/brain wo con IMPRESSION: No acute intracranial abnormality. Encephalomalacia in the posterior left temporal and parietal lobe consistent with a remote area of injury or infarct. This is new from 06/28/2017. Chronic small vessel ischemic changes. - EKG Data EKG #1 EKG attestation: Yes I reviewed and interpreted this EKG. EKG shows normal: sinus rhythm, axis, intervals, QRS complexes Interpretation: unchanged when compared to prior tracing (date) (06/28/17)
[2017-12-25 13:23] LABS: INR 1.1; Prothrombin Time 11.8 Seconds (9.4-12.1)
[2017-12-25 13:25] LABS: Activated Partial Thrombo Time 30.3 Seconds (26.0-36.0)
[2017-12-25 13:39] LABS: BUN/Creatinine Ratio 15 (6-26); Blood Urea Nitrogen 15 mg/dL (8-23); Calcium 8.4 mg/dL (8.6-10.3); Carbon Dioxide 27 mEq/L (23-29); Chloride 106 mEq/L (98-107); Glucose 212 mg/dL (70-105); Osmolality,Calculated 299 (280-300); Potassium 3.6 mEq/L (3.5-5.1); Sodium 141 mEq/L (136-145); eGFR For African Americans > 60 (> 60); eGFR For Non-African Americans 52 (> 60)
[2017-12-25 13:45] LABS: Troponin I 0.12 ng/mL (< 0.04)
[2017-12-25 14:28] LABS: Bilirubin,Urine Negative (Negative); Blood,Urine Trace-lysed (Negative); Clarity,Urine Clear (Clear); Color,Urine Yellow (Yellow); Glucose,Urine (UA) Normal (Normal); Ketones,Urine Negative (Negative); Leukocyte Esterase,Urine Trace (Negative); Nitrite,Urine Positive (Negative); PH,Urine 5.5 pH Units (5.0-8.0); Protein,Urine 30 mg/dL (Neg-Trace); Urobilinogen,Urine Normal (Normal)
[2017-12-25 14:31] LABS: Amphetamine Screen,Urine Negative ng/mL (Cutoff=1000); Barbiturate Screen,Urine Negative ng/mL (Cutoff=200); Benzodiazepines Screen,Urine Positive ng/mL (Cutoff=200); Cannabinoid Screen,Urine Negative ng/mL (Cutoff = 50); Cocaine Screen,Urine Negative ng/mL (Cutoff= 300); Opiate Screen,Urine Negative ng/mL (Cutoff=300); Phencyclidine Screen,Urine Negative ng/mL (Cutoff=25)
[2017-12-25] MEDS ORDERED: Aspirin 325 MG TABLET PO ONE (14:32)
[2017-12-25 14:43] LABS: Squamous Epithelial Cell,Urine Moderate per lpf (None-Few)
[2017-12-25 14:44] LABS: Hyaline Casts,Urine Few per lpf (None-Few)
[2017-12-25 14:45] LABS: Bacteria,Urine Many per hpf (None-Few); RBC,Urine 0-3 per hpf (0-3)
[2017-12-25] MEDS ORDERED: 0.9 % Sodium Chloride 500 ML IVC ONE (15:04)
[2017-12-25] MEDS ORDERED: cefTRIAXone 2,000 MG in 0.9 % Sodium Chloride Mini Bag 100 ML IVPB ONE ×2 (15:04→16:00)
--- NOTE | 2017-12-25 18:14 | Electrocardiograph Report ---
[address] [address] Test Date: 2017-12-25 Pat Name: Tova Ortiz Department: 103 Room: 2A12 Gender: F Inspector Precision: KVNG : 1930 Requested By: Tab Vernon Order Number: [id number] Reading MD: Christian Means Measurements Intervals [place] Rate: 78 P: 64 AK: 147 QRS: 42 QRSD: 93 T: 60 QT: 420 QTc: 453 Interpretive Statements SINUS RHYTHM BASELINE ARTIFACT Electronically Signed On 12-25-2017 18:12:07 EDT by Christian Means
--- NOTE | 2017-12-25 18:59 | Internal Med History&Physical ---
Date of Encounter: 12/25/17 Time of Encounter: 18:50 Internal Medicine - H&P: HPI Chief complaint: Altered mental status Admitted From: Emergency Dept Plans for Post Hospital Care: Home History of present illness: Ms. Ortiz is a 87 year old female with PmHx of HTN, HLD, CVA, (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 Pt is a poor historian due to underlying dementia. Pt A + O x 0. According to ED records states pt's daughter called EMS because pt was slumped over and unresponsive while sitting at the dinner table. Pt lives with her daughter. Pt is noted to be alert but confused. CODE STATUS: DNRCC In ED WBC 15.2, hgb 10.4, 31.3, PT 11.8/INR 3.6 Na 141, K 3.6, BUN 15, Cr 1.00. Lactic acid 1.3. Troponin 0.12 Urine analysis nitrite +, many bacteria, leukocyte Esterase trace. CT head non-contrast IMPRESSION: No acute intracranial abnormality. Encephalomalacia in the posterior left temporal and parietal lobe consistent with a remote area of injury or infarct. This is new from 06/28/2017. Chronic small vessel ischemic changes. Chest x ray IMPRESSION: No acute process. Past Med Surg Social Fam HX - Past Medical History Medical history: CVA, hypertension, seizures, thyroid disease Psychiatric history: anxiety - Past Surgical History Surgical History: knee replacement, thyroidectomy, appendectomy Additional surgical history: right knee replacement - Social History Smoking Status: Former smoker Smokeless Tobacco Status: No Alcohol use: none Drug use: none - Family History Mother Adopted: No Living Status: Hx Family Cardiac Disorders: No Hx Family Respiratory Disorders: No Hx Family Cancer: No Hx Family GI Disorders: No Hx Family Endocrine Disorder: No Hx Family Neuromuscular Disorders: No Hx Family Neurologic Disorders: No Hx Family HEENT Disorders: No Hx Family Autoimmune Disorders: No Internal Medicine - H&P: Meds ALPRAZolam [Xanax 0.25 MG Tablet] 0.25 mg PO BID PRN 12/26/16 [History] Alendronate Sodium [Fosamax] 70 mg PO QWEEK 12/26/16 [History] Aspirin Enteric Coated [Aspirin EC] 81 mg PO DAILY 12/26/16 [History] Losartan Potassium [Cozaar] 100 mg PO DAILY 12/26/16 [History] [place]-3/Dha/Epa/Fish Oil [Fish Oil 1,000 mg Softgel] 1,000 mg PO DAILY 12/26/16 [History] Vitamin B Complex 1 tab PO DAILY 12/26/16 [History] Amlodipine Besylate 10 mg PO DAILY 12/25/17 [History] Atorvastatin [Lipitor] 40 mg PO HS 12/25/17 [History] Clopidogrel [Plavix] 75 mg PO DAILY 12/25/17 [History] Donepezil [Aricept] 5 mg PO HS 12/25/17 [History] Pantoprazole Sodium [Protonix] 40 mg PO DAILY 12/25/17 [History] 3 Allergy/AdvReac Type Severity Reaction Status Date / Time No Known Allergies Allergy Verified 06/20/17 13:04 All Systems PM: Unable to obtain due to underlying dementia. - Constitutional Vitals: Temp Pulse Resp BP Pulse Ox 98.4 F 82 16 176/73 93 12/25/17 17:15 12/25/17 17:15 12/25/17 17:15 12/25/17 17:15 12/25/17 12:57 General appearance: Present: A&O X 0, pleasant, no acute distress Exam: Pt does not answer questions appropriately - Head Head exam: Present: atraumatic, normocephalic - Eye Eye exam: Present: PERRL, conjuntiva pink, sclera anicteric Pupils: Present: PERRL - Neck Neck exam general surgery: Present: supple, trachea midline. Absent: lymphadenopathy - Respiratory Respiratory exam: Present: CTAB. Absent: accessory muscle use, rales, rhonchi, wheezes - Cardiovascular Cardiovascular exam: Present: RRR, +S1, +S2. Absent: diastolic murmur, gallop, rubs, systolic murmur - GI/Abdominal GI/Abdominal exam: Present: normal bowel sounds, soft, no peritoneal signs. Absent: distended, tenderness - Extremities Exam Extremities exam: Present: warm, radial pulses palpable and symmetrical. Absent : calf tenderness, cyanotic, pedal edema - Neurological Exam Neurological exam: Present: CN II-XII intact, oriented X3, no focal deficits. Absent: pronater drift, facial droop, speech deficit - Skin Skin exam: Present: dry, intact Internal Med - H&P Results - Labs CBC & Chem 7: 12/25/17 13:00 12/25/17 13:00 - Assessment and plan (1) Urinary tract infection Current Visit: Yes Status: Acute Assessment and plan: Will place on Rocephin and send urine for culture and sensitivity. Will monitor glucose. Qualifiers: Urinary tract infection type: site unspecified Hematuria presence: without hematuria Qualified Code(s): N39.0 - Urinary tract infection, site not specified (2) History of CVA (cerebrovascular accident) Current Visit: Yes Status: Acute Assessment and plan: Of note recent CT non-contrast showed new CVA since her last head CT 2016. Plavix, ASA, and atorvastatin. (3) Essential hypertension Current Visit: No Status: Chronic Assessment and plan: Norvasc (4) Elevated troponin Current Visit: Yes Status: Acute Assessment and plan: Will cycle troponin but doubt there will be any aggressive intervention due to DNRCC code status (5) Generalized weakness Current Visit: Yes Status: Acute Assessment and plan: Will consult PT/OT - Time Spent With Patient Total time spent is greater than 50% in coordination of care (as documented) at patient's floor/unit and/or counseling patient: 25 - 35 minutes
[2017-12-25] MEDS ORDERED: Acetaminophen 325 MG TABLET PO PRN (19:09)
[2017-12-25] MEDS ORDERED: Naloxone 0.4 MG/ML INJ IVP PRN (19:09)
[2017-12-25] MEDS ORDERED: ALPRAZolam 0.25 MG TABLET PO PRN (19:17)
[2017-12-25] MEDS ORDERED: NON-FORMULARY MEDICATION 1 EACH EACH (Alendronate Sodium [Fosamax] 70 MG) PO SCH (19:30)
[2017-12-26 01:47] LABS: Basophils % 0.2 %; Eosinophils # 0.1 K/mcL (0.0-0.6); Eosinophils % 0.8 %; Hematocrit 31.3 % (35.3-44.9); Hemoglobin 10.6 g/dL (11.5-15.4); Immature Granulocytes % 0.3 % (0-4); Lymphocytes # 1.3 K/mcL (0.6-4.6); Lymphocytes % 10.7 %; Mean Corpuscular HGB Conc 33.9 g/dL (31.6-35.5); Mean Corpuscular Hemoglobin 29.2 pg (28.0-33.3); Mean Corpuscular Volume 86.2 fL (83.0-100.0); Mean Platelet Volume 9.9 fL (9.4-12.4); Monocytes # 1.3 K/mcL (0.0-1.3); Neutrophils # 9.4 K/mcL (1.6-8.9); Platelet Count 190 K/mcL (140-400); Red Blood Count 3.63 M/mcL (3.82-4.97); Red Cell Distribution Width 13.4 % (11.5-14.5)
[2017-12-26] MEDS ORDERED: *HR* Enoxaparin 30 MG/0.3 ML SYRINGE SQ SCH (06:00)
[2017-12-26 07:02] VITALS: BP 144/75
--- NOTE | 2017-12-26 07:33 | Internal Med Progress Note ---
Date of Encounter: 12/26/17 Time of Encounter: 07:30 - Assessment and plan (1) Urinary tract infection Status: Acute Assessment and plan: Continue IV ceftriaxone. Follow up blood and urine cultures. Pt is DNRCC Qualifiers: Urinary tract infection type: site unspecified Hematuria presence: without hematuria Qualified Code(s): N39.0 - Urinary tract infection, site not specified (2) History of CVA (cerebrovascular accident) Status: Acute Assessment and plan: Continue aspirin, plavix and statin (3) Encephalomalacia Status: Acute Assessment and plan: New encephalomalacia in posterior parietal lobe. Continue aspirib, plavix and statin. Pt is DNR-CC so no aggressive intervention. Supportive care and possible hospice placement. Palliative care consulted (4) Cardiac enzymes elevated Status: Acute Assessment and plan: Likely demand. EKG shows no acute ischemia. Patient is DNRCC. No aggressive intervention (5) DVT prophylaxis Status: Acute Assessment and plan: Continue lovenox (6) Essential hypertension Status: Chronic Assessment and plan: Continue amlodipine and losartan - Time Spent With Patient Total time spent is greater than 50% in coordination of care (as documented) at patient's floor/unit and/or counseling patient: - Subjective Interval history: No acute events overnight - Constitutional Vitals: Temp Pulse Resp BP Pulse Ox 98.5 F 80 16 144/75 96 12/26/17 07:00 12/26/17 07:00 12/26/17 07:00 12/26/17 07:00 12/26/17 07:00 General appearance: Present: A&O X 0, pleasant, no acute distress Exam: Lethargic, cahcetic female - Head Head exam: Present: atraumatic, normocephalic - Eye Eye exam: Present: PERRL, conjuntiva pink, sclera anicteric Pupils: Present: PERRL - Neck Neck exam general surgery: Present: supple, trachea midline. Absent: lymphadenopathy - Respiratory Respiratory exam: Present: CTAB. Absent: accessory muscle use, rales, rhonchi, wheezes - Cardiovascular Cardiovascular exam: Present: RRR, +S1, +S2. Absent: diastolic murmur, gallop, rubs, systolic murmur - GI/Abdominal GI/Abdominal exam: Present: normal bowel sounds, soft, no peritoneal signs. Absent: distended, tenderness - Extremities Exam Extremities exam: Present: warm, radial pulses palpable and symmetrical. Absent : calf tenderness, cyanotic, pedal edema - Neurological Exam Neurological exam: Present: CN II-XII intact, oriented X3, no focal deficits. Absent: pronater drift, facial droop, speech deficit - Skin Skin exam: Present: dry, intact Internal Medicine: Result - Labs CBC & Chem 7: 12/26/17 01:22 12/25/17 13:00 Labs: Short CBC 12/26/17 Range/Units 01:22 WBC 12.2 H (4.3-11.1) K/mcL Hgb 10.6 L (11.5-15.4) g/dL Hct 31.3 L (35.3-44.9) % Plt Count 190 (140-400) K/mcL Neutrophils # 9.4 H (1.6-8.9) K/mcL Cardiac Enzymes 12/26/17 Range/Units 01:22 Troponin I 0.12 H* (< 0.04) ng/mL - ABG Interpretation ABG results: PT/INR, D-dimer PT 11.8 Seconds (9.4-12.1) 12/25/17 13:00 Consult Discharge Plan - Plan Referrals: Wellington George MD [Primary Care Provider] - (web request 12/26/2017) Prescriptions: Ciprofloxacin [Cipro] 500 mg PO BID #6 tablet
[2017-12-26] MEDS ORDERED: cefTRIAXone 2,000 MG in Water for inj. (sterile) 20 ML 20 ML IVP SCH (09:00)
[2017-12-26] MEDS ORDERED: Aspirin Enteric Coated 81 MG Tablet PO SCH (09:00)
[2017-12-26] MEDS ORDERED: amLODIPine 5 MG TABLET PO SCH (09:00)
--- NOTE | 2017-12-26 09:24 | Discharge Summary ---
Orders not resulted at time of discharge: Pending orders 12/25/17 21:17 Bedside Swallowing Evaluation [EVAL] Routine 12/26/17 07:29 Culture,Blood [BC] Routine Date of Encounter: 12/26/17 Time of Encounter: 09:00 - Discharge Diagnosis (1) Urinary tract infection Priority: Primary Status: Acute Assessment and Plan: 87 year old female with PmHx of HTN, HLD, CVA, (07/05, no focal deficits but worsening cognitive impairment), and dementia came in with worsening mental status and unresponsiveness. Pt is DNRCC. She was assessed with ams likely 2/2 to UTI vs acute CVA. She was started on Iv antibiotics with ceftriaxone with an improvement in her symptoms. She a CT head showing no acute intracranial abnormality but encephalomalacia was noted. By the next day, she had recovered and was abck to her baseline mental status [er her family at bedside. WBC also trended down. With a sooner than anticipated recovery, she was discharged home to complete a course of ciprofloxacin Qualifiers: Urinary tract infection type: site unspecified Hematuria presence: without hematuria Qualified Code(s): N39.0 - Urinary tract infection, site not specified (2) History of CVA (cerebrovascular accident) Priority: Secondary Status: Acute (3) Encephalomalacia Priority: Secondary Status: Acute (4) Cardiac enzymes elevated Priority: Secondary Status: Acute (5) DVT prophylaxis Priority: Secondary Status: Acute (6) Essential hypertension Priority: Secondary Status: Chronic Hospital course: Ms. Ortiz is a 87 year old female - Time Spent with Patient Total time spent providing and/or coordinating discharge services: - Discharge Medications Prescriptions: Ciprofloxacin [Cipro] 500 mg PO BID #6 tablet Home Medications: ALPRAZolam [Xanax 0.25 MG Tablet] 0.25 mg PO BID PRN 12/26/16 [History] Alendronate Sodium [Fosamax] 70 mg PO QWEEK 12/26/16 [History] Aspirin Enteric Coated [Aspirin EC] 81 mg PO DAILY 12/26/16 [History] Losartan Potassium [Cozaar] 100 mg PO DAILY 12/26/16 [History] [place]-3/Dha/Epa/Fish Oil [Fish Oil 1,000 mg Softgel] 1,000 mg PO DAILY 12/26/16 [History] Vitamin B Complex 1 tab PO DAILY 12/26/16 [History] Amlodipine Besylate 10 mg PO DAILY 12/25/17 [History] Atorvastatin [Lipitor] 40 mg PO HS 12/25/17 [History] Clopidogrel [Plavix] 75 mg PO DAILY 12/25/17 [History] Donepezil [Aricept] 5 mg PO HS 12/25/17 [History] Pantoprazole Sodium [Protonix] 40 mg PO DAILY 12/25/17 [History] Ciprofloxacin [Cipro] 500 mg PO BID #6 tablet 12/26/17 [Rx] Allergies/Adverse Reactions: 3 Allergy/AdvReac Type Severity Reaction Status Date / Time No Known Allergies Allergy Verified 06/20/17 13:04 Date of admission: 12/25/17 20:08 Primary care physician: Wellington George MD Consults: 12/26/17 07:25 Consult to Palliative Care [CONS] Routine Comment: Consulting Provider: Palliative Care Eileen Reason for Consult: goals of care. Possible hospice placement Call Completed: Yes - Constitutional Vitals: Temp Pulse Resp BP Pulse Ox 98.5 F 80 16 144/75 96 12/26/17 07:00 12/26/17 07:00 12/26/17 07:00 12/26/17 07:00 12/26/17 07:00 General appearance: Present: A&O X 0, pleasant, no acute distress - Head Head exam: Present: atraumatic, normocephalic - Eye Eye exam: Present: PERRL, conjuntiva pink, sclera anicteric Pupils: Present: PERRL - Neck Neck exam general surgery: Present: supple, trachea midline. Absent: lymphadenopathy - Respiratory Respiratory exam: Present: CTAB. Absent: accessory muscle use, rales, rhonchi, wheezes - Cardiovascular Cardiovascular exam: Present: RRR, +S1, +S2. Absent: diastolic murmur, gallop, rubs, systolic murmur - GI/Abdominal GI/Abdominal exam: Present: normal bowel sounds, soft, no peritoneal signs. Absent: distended, tenderness - Extremities Exam Extremities exam: Present: warm, radial pulses palpable and symmetrical. Absent : calf tenderness, cyanotic, pedal edema - Neurological Exam Neurological exam: Present: CN II-XII intact, oriented X3, no focal deficits. Absent: pronater drift, facial droop, speech deficit - Skin Skin exam: Present: dry, intact - Patient Status Disposition: Home, Self-Care Condition: Good - Discharge Instructions Follow Up With: Wellington George MD [Primary Care Provider] - (web request 12/26/2017)
== END 2017-12-26 11:09 | disposition home or self-care (01) | DRG 690 ==
LOC: EMEROO 12:54 → 2ANU 12:54
PROVIDERS: ADMIT Family Medicine; ATTEND Family Medicine